=== PATIENT | female | born 1985 | race African-American/Black ===

== ENCOUNTER 2018-04-08 16:16 | Emergency (ER) | payer MEDICAID ==
[~2018-04-08] VITALS: Ht 162.6 cm; Wt 81.6 kg
[2018-04-08 16:20] VITALS: BP 130/80
--- NOTE | 2018-04-08 16:42 | Emergency Room Report ---
History of Present Illness General Chief Complaint: General Complaint Source: Patient, Family Member - Brother Present Illness HPI 32yo F w/ h/o HTN and DM is brought in by brother for concern for mental health for the past 10 years, patient has been exhibiting abnormal behavior, concern for depression versus psychosis. Most recently patient was missing for the last 4 days, and patient reports she just wanted to go to the beach to clear her head and think about her life. Family filed a missing persons report, but it fires, and also sudden patient just came back home unannounced, and she reports that she just wanted to go to the beach, and she reports she was sleeping at the beach the past few days. She denies injuring herself, she denies being assaulted, she denies any falls, she reports she's not been eating or drinking much. She also denies any suicidal, homicidal thoughts, denies hearing voices or seeing things. She was just hospitalized for hypertension and diabetes at an outside hospital and discharged about a week ago. She has never seen a psychiatrist and has never been diagnosed with any psychiatric illness or mental health diagnoses officially. Allergies: Coded Allergies: No Known Allergies (Unverified , 04/08/18) Patient History Past Medical History: see triage record Now: No Reviewed Nursing Documentation: PMH: Agreed; PSxH: Agreed Nursing Documentation-PMH Past Medical History: No History, Except For Hx Hypertension: Yes Hx Diabetes: Yes Review of Systems Constitutional: Denies: fevers, chills, weakness ENT: Denies: hearing loss, nasal d/c Respiratory: Denies: SOB, cough Cardiovascular: Denies: chest pain, palpitations, syncope Gastrointestinal/Abdominal: Denies: pain, nausea, vomiting, diarrhea, melena, hematemesis Genitourinary: Denies: dysuria, urgency Musculoskeletal: Denies: new bone or joint pain, back problems, swelling Skin: Denies: skin lesions, rash Psychiatric: Denies: no symptoms Neurological: Denies: syncope, ANDERSEN, seizures, dizziness Endocrine: Denies: no symptoms Hematologic/Lymphatic: Denies: bruising, adenopathy, bleeding diathesis Allergic: Denies: urticaria All Other Systems: negative except mentioned in HPI Physical Exam Vital Signs Date Time Temp Pulse Resp B/P (MAP) Pulse Ox O2 Delivery O2 Flow Rate FiO2 04/08/18 16:13 97.9 115 20 99 Room Air 97.9 04/08/18 16:20 130/80 Sp02 EP Interpretation: reviewed, normal General Appearance: alert/responsive, no apparent distress, GCS 15, non-toxic Head: atraumatic Eyes: PERRL, lids + conjunctiva normal ENT: hearing intact, no angioedema Neck: supple/symm/no masses, no meningismus Respiratory: effort normal, no wheezing, chest symmetrical Cardiovascular: regular rate, rhythm - slightly tachycardic, no murmur, gallop , rub, no edema Cardiovascular #2: 2+ carotid (R), 2+ carotid (L) Gastrointestinal: non-tender, no mass, non-distended, no rebound/guarding, normal bowel sounds Musculoskeletal: gait & station normal, strength & tone normal, normal ROM, non -tender Neurologic: CN II-XII intact, oriented x3, sensory intact, motor strength/tone normal, cerebellar normal, normal speech Psychiatric: normal inspection, memory normal, mood normal, no suicidal/ homicidal ideation, no delusions, other - bizarre, flat affect Skin: no rash, well hydrated Lymphatic: normal inspection Medical Decision Making ER Course Patient with likely undiagnosed psychiatric illness, but no criteria for 5150 met currently. Patient is AAOx4, but I do suspect she needs to speak to a mental health professional. Unfortunately our ED does not offer this service currently, and Dr. Hirsch is not available today. I will give her information for f/u. Patient found to have hematuria on UA, but she reports she is on her cycle. She and her brother [facility], as well as the [facility] paperwork for immediate follow up. She is medically cleared. EKG Diagnostic Results EKG Time: 16:37 EP Interpretation: no st-t changes, no TWI Rate: tachycardiac Rhythm: NSR ST Segments: no acute changes ASA given to the pt in ED: No CT/MRI/US Diagnostic Results CT/MRI/US Diagnostic Results : Imaging Test Ordered: ct head noncontrast Impression No acute disease based on stat rad report. Last Vital Signs Date Time Temp Pulse Resp B/P (MAP) Pulse Ox O2 Delivery O2 Flow Rate FiO2 04/08/18 16:20 97.9 123 20 130/80 99 Room Air 97.9 Disposition: HOME, SELF-CARE Condition: Stable Referrals: Vivek DALTON,REFERRING (PCP) KATE PAULINO M.D Apr 08, 2018 16:42
[2018-04-08 17:05] LABS: APPEARANCE,URINE SLIGHTLY CLOUDY; BILIRUBIN, URINE NEGATIVE (NEGATIVE); COLOR,URINE PALE YELLOW; GLUCOSE, URINE (UA) NEGATIVE (NEGATIVE); KETONES,URINE NEGATIVE (NEGATIVE); LEUKOCYTE ESTERASE ,URINE 1+ (NEGATIVE); NITRITE,URINE NEGATIVE (NEGATIVE); PH,URINE 6.5 (4.5-8.0); PROTEIN,URINE 2+ (NEGATIVE); UROBILINOGEN,URINE NORMAL MG/DL (0.0-1.0)
[2018-04-08 17:14] LABS: BASOPHILS % (AUTO) 1.4 % (0.0-2.0); EOSINOPHILS % (AUTO) 0.9 % (0.0-3.0); HEMATOCRIT 35.8 % (37.0-47.0); LYMPHOCYTES % (AUTO) 22.4 % (20.0-45.0); MEAN CORPUSCULAR VOLUME 84 FL (80-99); NEUTROPHILS % (AUTO) 68.4 % (45.0-75.0); PLATELET COUNT 330 K/UL (150-450); RED BLOOD COUNT 4.27 M/UL (4.20-5.40); RED CELL DISTRIBUTION WIDTH 12.7 % (11.6-14.8); WHITE BLOOD COUNT 13.5 K/UL (4.8-10.8)
[2018-04-08 17:26] LABS: ANION GAP 11 mmol/L (5-15); BLOOD UREA NITROGEN 9 mg/dL (7-18); CALCIUM 8.8 MG/DL (8.5-10.1); CARBON DIOXIDE 25 MMOL/L (21-32); CHLORIDE 98 MMOL/L (98-107); POTASSIUM 3.1 MMOL/L (3.5-5.1); SODIUM 134 MMOL/L (136-145)
[2018-04-08 17:39] LABS: ALANINE AMINOTRANSFERASE 51 U/L (12-78); ALBUMIN 3.6 G/DL (3.4-5.0); ALBUMIN/GLOBULIN RATIO 0.8 (1.0-2.7); ALKALINE PHOSPHATASE 95 U/L (46-116); ASPARTATE AMINO TRANSFERASE 40 U/L (15-37); BILIRUBIN,TOTAL 0.5 MG/DL (0.2-1.0)
[2018-04-08 18:04] VITALS: BP 131/79
[2018-04-08 18:45] VITALS: BP 131/79
--- NOTE | 2018-04-09 10:23 | Diagnostic Imaging Report ---
Indication: Altered mental status Technique: Contiguous 5 mm thick transaxial imaging of the head obtained in a Siemens Sensation [address] scanner. Soft tissue and bone windows generated. Automatic Exposure Control was utilized. Total Dose length Product (DLP): 1404.[address] Dose Index Volume (CTDIvol): 70.38 mGy Comparison: none Findings: The size and configuration of the cortical sulci, basal cisterns, and ventricles are within normal limits for age. There is no mass effect, midline shift, or edema identified. There is no evidence of acute hemorrhage or abnormal intra-axial or extra-axial fluid collections. The bones and soft tissues are unremarkable. Some fluid in mucosal opacification noted within the paranasal sinuses. Impression: No mass effect, edema or acute bleed. Sinusitis There is considerable artifact limiting evaluation. [facility] has communicated the preliminary results to the Emergency Department. Their findings are largely concordant with this report. The CT scanner at [facility] is accredited by the [employer] and the scans are performed using dose optimization techniques as appropriate to a performed exam including Automatic Exposure control.
--- NOTE | 2018-04-13 00:40 | Cardiology Report ---
APPROVED REPORT EKG Measurement Heart [id number] Sinus tachycardia Cannot rule out Inferior infarct, age undetermined Cannot rule out Anterior infarct, age undetermined Abnormal ECG
== END 2018-04-08 18:45 | disposition home or self-care (01) ==
LOC: EDBD 16:16 → EMR 16:29
DX: Z04.8 Encounter for examination and observation for other specified reasons (principal); E11.9 Type 2 diabetes mellitus without complications; I10 Essential (primary) hypertension; R41.82 Altered mental status, unspecified; J32.9 Chronic sinusitis, unspecified
CPT/HCPCS: 36415; 70450; 80053; 80307; 80329; 81003; 81025; 84443; 85025; 93005; 96360; 99284; J8499